=== PATIENT | male | born 1940 | race Two or more races ===

== ENCOUNTER 2016-07-14 08:11 | Emergency (ER) | payer OTHER ==
[2016-07-14 08:18] VITALS: TEMP 97.9
--- NOTE | 2016-07-14 08:30 | CPEKG ---
Heart Rate: 77 RR Interval: 779 P-R Interval: 156 QRSD Interval: 114 QT Interval: 380 QTC Interval: 431 P [place]: 51 QRS Columbia: -54 T Wave Columbia: 74 EKG Severity - ABNORMAL ECG - EKG Impression: SINUS ARRHYTHMIA, RATE 59-87 EKG Impression: INCOMPLETE LEFT BUNDLE BRANCH BLOCK EKG Impression: BORDERLINE R WAVE PROGRESSION, ANTERIOR LEADS Electronically Signed By: Edith Arzola 14-Jul-2016 15:11:20
--- NOTE | 2016-07-14 08:40 | DX ---
PA Upright and Lateral Views of the Chest, at 8:04 a.m. Clinical History: 76-year-old male in the ED with history of a productive cough for 2 weeks, and shor tness of breath. Rule out pneumonia. Comparison Study: None. Findings: Telemetry monitoring lead lines are noted. The cardiac and mediastinal silhouette is normal in size. There is mild central peribronchial wall thickening. There is some mild bibasilar subsegmen kathy atelectasis versus early infiltrate versus fibrosis. There is no pleural effusion or pneumothorax . The trachea is midline. The osseous structures are age-appropriate. Impression: Mild perihilar bronchial wall thickening with some subsegmental atelectasis versus minima l infiltrates versus mild bibasilar fibrosis. Clinical correlation and followup are suggested.
[2016-07-14 08:47] LABS: % IMMATURE GRANULYOCYTES 0.5 % (0.0-1.1); ABSOLUTE IMMATURE GRANULOCYTES 0.03 10^3/uL (0.00-0.10); ADD DIFF? NO; ADD MORPH? NO; ADD SCAN? NO; ATYPICAL LYMPHOCYTE FLAG 10 (0-99); FRAGMENT RBC FLAG 0 (0-99); HEMATOCRIT 44.2 % (40.0-51.0); HEMOGLOBIN 15.5 g/dL (13.7-17.5); LEFT SHIFT FLG 0 (0-99); LIPEMIA HEMOLYSIS FLAG 90 (0-99); MEAN CELL HEMOGLOBIN 30.5 pg (27.9-34.1); MEAN CELL HEMOGLOBIN CONCENTR. 35.1 g/dL (32.4-36.7); MEAN CELL VOLUME 86.8 fL (81.5-99.8); MEAN PLATELET VOLUME 9.3 fL (8.7-11.7); PLATELET CLUMPS FLAG 20 (0-99); PLATELET COUNT 267 10^3/uL (150-400); RED BLOOD CELL COUNT 5.09 10^6/uL (4.40-6.38); RED CELL DISTRIBUTION WIDTH 12.2 % (11.5-15.2)
[2016-07-14 09:10] LABS: ANION GAP 10 mEq/L (8-16); CARBON DIOXIDE 26 mEq/l (22-31); CHLORIDE 100 mEq/L (97-110); CREATININE 0.9 mg/dL (0.7-1.3); GLOMERULAR FILTRATION RATE > 60; GLUCOSE 331 mg/dL (70-100); POTASSIUM 4.7 mEq/L (3.5-5.2); SODIUM 136 mEq/L (134-144)
--- NOTE | 2016-07-14 09:20 | EDPHY ---
H & P Time Seen by Provider: 07/14/16 08:46 HPI/ROS: CHIEF COMPLAINT: cough, congestion HISTORY OF PRESENT ILLNESS: Patient is a 76-year-old male who presents emergency department with 3 weeks of upper respiratory illness. Patient states that every year around this time he seems to get a respiratory illness. 3 weeks ago he developed a cough and congestion. This is progressed. He saw his primary care physician last week and took azithromycin x3 days. He feels as though he is bringing up phlegm and it feels like glue. He has been taking Mucinex with no significant relief. He denies fevers or chills. No chest pain. No nausea or vomiting. Patient has no leg pain or swelling. REVIEW OF SYSTEMS: My complete review of systems is negative except as mentioned in the HPI. Past Medical/Surgical History: Includes hypertension, high cholesterol, diabetes Past surgical history: Negative Social history: The patient quit smoking. Does not use alcohol. He is . Smoking Status: Former smoker Physical Exam: Vitals noted GENERAL: Well-appearing, in no acute distress, alert. HEENT: Eyes normal to inspection, normal pharynx, no signs of dehydration. NECK: No thyromegaly, no lymphadenopathy, supple. RESPIRATORY: Clear to auscultation bilaterally, no rales, rhonchi or wheezing. Normal CVS: Regular rate and rhythm, no rubs, murmurs, or gallops. ABDOMEN: Soft, nontender, nondistended, no organomegaly. BACK: Normal to inspection, no CVA tenderness. SKIN: Normal color, no rash, warm, dry. No pallor. EXTREMITIES: No pedal edema, no calf tenderness, no Homans sign or cords, no joint swelling. NEURO/PSYCH: Alert and oriented x3, normal mood and affect, normal motor sensory exam. Constitutional: Initial Vital Signs Temperature (C) 36.6 C 07/14/16 08:15 Heart Rate 79 07/14/16 08:15 Respiratory Rate 14 07/14/16 08:15 Blood Pressure 127/70 H 07/14/16 08:15 O2 Sat (%) 95 07/14/16 08:15 O2 Delivery Mode Room Air Allergies/Adverse Reactions: No Known Allergies Allergy (Unverified 07/14/16 08:18) Home Medications: Medication Instructions Recorded Albuterol [Proventil Inhaler HFA 1 - 2 puffs IH Q4H #1 ekaterina 07/14/16 (*)] Medical Decision Making ED Course/Re-evaluation: In the emergency department I discussed possible etiologies with the patient. Laboratory studies, EKG and chest x-ray were performed. EKG shows sinus rhythm, normal rate, normal axis. Incomplete left bundle branch block. Poor R-wave progression. There are no ST or T-wave abnormalities. Chest x-ray: Please refer the dictated report by the radiologist. I reviewed the imaging studies. The patient does have bilateral scarring versus early infiltrate. I reviewed the patient's laboratory studies. White count is normal. Lactic acid is minimimally elevated a5 2.5. Chemistry panel unremarkable. I discussed the findings with the patient. Patient will be given an albuterol inhaler. He was instructed uses for the next 3 days every 4 hours. He will follow up with Dr. Charles. He was given warnings prior to leaving. He felt comfortable with this plan. Differential Diagnosis: Patient presents to the emergency department with ongoing respiratory symptoms. He was treated with an entire course of azithromycin. He states he took 500 mg for 3 days 5 days ago. Patient appears well on exam and has no respiratory distress. He does not appear septic or toxic. His lactate is 2.5 and white count are normal. The patient is safe for discharge. I do not feel he needs additional antibiotics at this time. He will be given an albuterol for his symptoms. I doubt ACS or acute TX causing his symptoms. I doubt malignancy or mass. - Data Points Laboratory Results: Laboratory Results 07/14/16 08:37 07/14/16 08:37 07/14/16 07/14/16 08:57 08:37 WBC 6.13 10^3/uL (3.80-9.50) RBC 5.09 10^6/uL (4.40-6.38) Hgb 15.5 g/dL (13.7-17.5) Hct 44.2 % (40.0-51.0) MCV 86.8 fL (81.5-99.8) MCH 30.5 pg (27.9-34.1) MCHC 35.1 g/dL (32.4-36.7) RDW 12.2 % (11.5-15.2) Plt Count 267 10^3/uL (150-400) MPV 9.3 fL (8.7-11.7) Neut % (Auto) 63.8 % (39.3-74.2) Lymph % (Auto) 24.6 % (15.0-45.0) Sherman % (Auto) 6.2 % (4.5-13.0) Eos % (Auto) 4.2 % (0.6-7.6) Baso % (Auto) 0.7 % (0.3-1.7) Nucleat RBC Rel Count 0.0 % (0.0-0.2) Absolute Neuts (auto) 3.91 10^3/uL (1.70-6.50) Absolute Lymphs (auto) 1.51 10^3/uL (1.00-3.00) Absolute Monos (auto) 0.38 10^3/uL (0.30-0.80) Absolute Eos (auto) 0.26 10^3/uL (0.03-0.40) Absolute Basos (auto) 0.04 10^3/uL (0.02-0.10) Absolute Nucleated RBC 0.00 10^3/uL (0-0.01) Immature Gran % 0.5 % (0.0-1.1) Immature Gran # 0.03 10^3/uL (0.00-0.10) VBG Lactic Acid 2.5 H mmol/L (0.7-2.1) Sodium 136 mEq/L (134-144) Potassium 4.7 mEq/L (3.5-5.2) Chloride 100 mEq/L (97-110) Carbon Dioxide 26 mEq/l (22-31) Anion Gap 10 mEq/L (8-16) BUN 19 mg/dL (7-23) Creatinine 0.9 mg/dL (0.7-1.3) Estimated GFR > 60 Glucose 331 H mg/dL (70-100) Calcium 9.0 mg/dL (8.5-10.4) Troponin I < 0.012 ng/mL (0-0.034) Departure - Departure Disposition: Home, Routine, Self-Care Clinical Impression: Acute bronchitis Qualifiers: Bronchitis organism: unspecified organism Qualifier Code: (J20.9) Acute bronchitis, unspecified Condition: Good Instructions: Acute Bronchitis (ED) Additional Instructions: Return with increasing cough, shortness of breath, fever, chills or any other concerns. Use your inhaler 3 times a day for 3 days. Follow up with Dr. Charles on Friday or Friday. Referrals: Jasper Charles MD [Primary Care Provider] - 1-2 days without fail Prescriptions: Albuterol [Proventil Inhaler HFA (*)] 1 - 2 puffs IH Q4H #1 mdi
[2016-07-14 09:21] LABS: TROPONIN I < 0.012 ng/mL (0-0.034)
[2016-07-14 09:38] VITALS: BP 116/86; PULSE 87; RESP 16; O2SAT 94
== END 2016-07-14 09:39 | disposition home or self-care (01) ==
DX: J20.9 Acute bronchitis, unspecified (principal); I10 Essential (primary) hypertension; E11.9 Type 2 diabetes mellitus without complications; Z87.891 Personal history of nicotine dependence

== ENCOUNTER → 2016-11-04 | Outpatient (CLI) | payer OTHER | LOC: FIMAGING 09:17 → EDSTATUS 09:18 | PROVIDERS: ATTEND Family Medicine Sports Medicine | DX: M50.320 Other cervical disc degeneration, mid-cervical region, unspecified level (principal); M47.892 Other spondylosis, cervical region ==

== ENCOUNTER 2017-10-02 21:56 | Emergency (ER) | payer OTHER ==
--- NOTE | 2017-10-02 22:35 | EDPHY ---
H & P Stated Complaint: cough, shortness of breath Time Seen by Provider: 10/02/17 22:20 HPI/ROS: Chief Complaint: Cough, shortness of breath HPI: 77-year-old male with a history of diabetes has been having cough with associated shortness of breath for the last 4 days. Patient states the cough is productive of scant whitish sputum. He has not had any relief with Mucinex. Had some associated shortness of breath primarily at night when he is trying to sleep. No chest pain. No leg pain or swelling. No fevers or chills. No nausea or vomiting. He did get a flu shot this year. No known ill contacts. ROS: 10 point Review of Systems is negative except as noted in the HPI. PMH: Diabetes Social History: No smoking, no alcohol, no recreational drug use Family History: non-contributory Physical Exam: Gen: Awake, Alert, No Distress HEENT: Nose: no rhinorrhea Eyes: PERRLA, EOMI Mouth: Moist mucosa Neck: Supple, no JVD Chest: nontender, decreased breath sounds bilaterally with fine crackles at the left lung base, no wheeze Heart: S1, S2 normal, no murmur Abd: Soft, non-tender, no guarding Back: no CVA tenderness, no midline tenderness Ext: no edema, non-tender Skin: no rash Neuro: CN II-XII intact, Sensation grossly intact, Strength 5/5 in bilateral upper and lower extremities - Personal History Current Tetanus/Diphtheria Vaccine: Unsure Current Tetanus Diphtheria and Acellular Pertussis (TDAP): Unsure - Medical/Surgical History Hx Asthma: No Hx Chronic Respiratory Disease: No Hx Diabetes: Yes Hx Cardiac Disease: No Hx Renal Disease: No Hx Cirrhosis: No Hx Alcoholism: No Hx HIV/AIDS: No Hx Splenectomy or Spleen Trauma: No Other PMH: High chol, DM - Social History Smoking Status: Former smoker Constitutional: Initial Vital Signs Temperature (C) 37 C 10/02/17 22:06 Heart Rate 99 10/02/17 22:06 Respiratory Rate 20 10/02/17 22:06 Blood Pressure 145/81 H 10/02/17 22:06 O2 Sat (%) 89 L 10/02/17 22:06 O2 Delivery Mode Room Air Allergies/Adverse Reactions: No Known Allergies Allergy (Unverified 07/14/16 08:18) Home Medications: Medication Instructions Recorded Albuterol [Proventil Inhaler HFA 1 - 2 puffs IH Q4H #1 mdi 07/14/16 (*)] Azithromycin [Zithromax] 250 mg PO DAILY #6 tab 10/03/17 Medical Decision Making - Diagnostics Imaging Results: Imaging Impressions Chest X-Ray 10/02/17 22:33 Impression: 1. Small right pleural effusion and right lower lobe pneumonia. 2. Recommend follow-up until clear. Findings and recommendations discussed with Emergency Department physician, Allen Das MD at 23:04 hour, 10/02/2017. Final report concurs with initial preliminary interpretation. Imaging: I viewed and interpreted images myself ED Course/Re-evaluation: Patient has right lower lobe pneumonia. Patient is given a DuoNeb and now is satting 95% on room air. Given azithromycin 500 mg orally. Will discharge with continuing azithromycin. Will send him home with albuterol MDI spacer. He will follow up with primary care physician for further evaluation, return for any worsening symptoms. - Data Points Laboratory Results: Laboratory Results 10/02/17 22:23 10/02/17 22:23 10/02/17 10/02/17 22:23 22:23 WBC 11.59 10^3/uL H 10^3/uL (3.80-9.50) RBC 5.11 10^6/uL 10^6/uL (4.40-6.38) Hgb 15.5 g/dL g/dL (13.7-17.5) Hct 44.1 % % (40.0-51.0) MCV 86.3 fL fL (81.5-99.8) MCH 30.3 pg pg (27.9-34.1) MCHC 35.1 g/dL g/dL (32.4-36.7) RDW 12.4 % % (11.5-15.2) Plt Count 239 10^3/uL 10^3/uL (150-400) MPV 9.8 fL fL (8.7-11.7) Neut % (Auto) 69.8 % % (39.3-74.2) Lymph % (Auto) 17.8 % % (15.0-45.0) [place] % (Auto) 9.7 % % (4.5-13.0) Eos % (Auto) 1.8 % % (0.6-7.6) Baso % (Auto) 0.4 % % (0.3-1.7) Nucleat RBC Rel Count 0.0 % % (0.0-0.2) Absolute Neuts (auto) 8.09 10^3/uL H 10^3/uL (1.70-6.50) Absolute Lymphs (auto) 2.06 10^3/uL 10^3/uL (1.00-3.00) Absolute Monos (auto) 1.12 10^3/uL H 10^3/uL (0.30-0.80) Absolute Eos (auto) 0.21 10^3/uL 10^3/uL (0.03-0.40) Absolute Basos (auto) 0.05 10^3/uL 10^3/uL (0.02-0.10) Absolute Nucleated RBC 0.00 10^3/uL 10^3/uL (0-0.01) Immature Gran % 0.5 % % (0.0-1.1) Immature Gran # 0.06 10^3/uL 10^3/uL (0.00-0.10) Sodium 132 mEq/L L mEq/L (135-145) Potassium 4.3 mEq/L mEq/L (3.5-5.2) Chloride 97 mEq/L mEq/L (97-110) Carbon Dioxide 24 mEq/l mEq/l (22-31) Anion Gap 11 mEq/L mEq/L (8-16) BUN 12 mg/dL mg/dL (7-23) Creatinine 0.7 mg/dL mg/dL (0.7-1.3) Estimated GFR > 60 Glucose 267 mg/dL H mg/dL (70-100) Calcium 8.8 mg/dL mg/dL (8.5-10.4) Medications Given: Discontinued Medications Albuterol/Ipratropium (Duoneb) 3 ml IH EDNOW ONE Stop: 10/03/17 00:17 Last Admin: 10/03/17 00:16 Dose: 3 ml Azithromycin (Zithromax) 500 mg PO EDNOW ONE PRN Reason: Protocol Stop: 10/03/17 00:03 Last Admin: 10/03/17 00:16 Dose: 500 mg Departure - Departure Disposition: Home, Routine, Self-Care Clinical Impression: Pneumonia Condition: Good Instructions: Bacterial Pneumonia (ED) Additional Instructions: You may use the albuterol inhaler 2 puffs every 2-4 hours as needed for cough or wheeze. Always use a spacer when you use the inhaler. Please take your full course of antibiotics. Follow up with your primary care physician in 2-3 days for further evaluation. Return to the emergency department for increasing shortness of breath, cough, fevers, chills, lightheadedness, fainting, or any other concerns. Referrals: Jasper Charles MD [Primary Care Provider] - As per Instructions Prescriptions: Azithromycin [Zithromax] 250 mg PO DAILY #6 tab
[2017-10-02 23:15] LABS: PLATELET COUNT 239 10^3/uL (150-400)
[2017-10-03] MEDS ORDERED: AZITHROMYCIN 250 MG TAB PO ONE (00:02)
[2017-10-03] MEDS ORDERED: IPRATROPIUM/ALBUTEROL 3 ML DEYVIAL ONE (00:14)
[2017-10-03] MEDS ORDERED: IPRATROPIUM/ALBUTEROL 3 ML DEYVIAL IH ONE (00:16)
[2017-10-03 01:29] VITALS: BP 130/74
[2017-10-03] MEDS ORDERED: ALBUTEROL INH PREPACK MDI TAKEHOME ONE ×2 (01:31→01:35)
== END 2017-10-03 01:41 | disposition home or self-care (01) ==
DX: J18.9 Pneumonia, unspecified organism (principal); E11.9 Type 2 diabetes mellitus without complications; Z87.891 Personal history of nicotine dependence